=== PATIENT | male | born 1940 | race Caucasian/White ===

== ENCOUNTER → 2017-02-01 | Day surgery (SDC) | payer MEDICARE, OTHER ==
[~2017-02-01] MED LIST: LACTATED RINGER'S 1000 ML INJ 1,000 ML ONE; PROPOFOL 200 MG/20 ML AMP IV ONE
--- NOTE | 2017-02-01 13:30 | GIPROC ---
[facility] [address] [facility], [id number] EGD PROCEDURE REPORT EXAM DATE: 02/01/2017 PATIENT NAME: Dami Luna MR #: [id number] BIRTHDATE: 1940 ATTENDING: Filemon Razo MD ORDER #: [id number] COMPRESSOR OPERATOR: Erin Ventura RN STATUS: outpatient INDICATIONS: The patient is a 76 yr old male here for an EGD due to h/o cirrhosis H/O esophageal varices PROCEDURE PERFORMED: EGD w/ biopsy MEDICATIONS: None and Per Anesthesia. TOPICAL ANESTHETIC: none CONSENT: The patient understands the risks and benefits of the procedure and understands that these risks include, but are not limited to: sedation, allergic reaction, infection, perforation and/or bleeding. Alternative means of evaluation and treatment include, among others: physical exam, x-rays, and/or surgical intervention. The patient elects to proceed with this endoscopic procedure. medical equipment was checked for proper function. Hand hygiene and appropriate measures for infection prevention was taken. After the risks, benefits and alternatives of the procedure were thoroughly explained, Informed consent was verified, confirmed and timeout was successfully executed by the treatment team. The patient was anesthetized with topical anesthesia and the EC-[id number] ([id number]) endoscope was introduced through the mouth and advanced to the second portion of the duodenum. Retroflexed views revealed no abnormalities and Retroflexed views revealed a hiatal hernia The gastroscope was then slowly withdrawn and removed. Geade 1 esophageal varices in distal esophagus. Gastropathy and gastritis Bx from body of stomach. The endoscopy was otherwise normal. ADVERSE EVENTS: There were no complications. IMPRESSIONS: 1. Geade 1 esophageal varices in distal esophagus 2. Gastropathy and gastritis Bx from body of stomach 3. Normal endoscopy otherwise 4. Retroflexed views revealed no abnormalities 5. Retroflexed views revealed a hiatal hernia RECOMMENDATIONS: 1. Await biopsy results. Biopsy results will not be ready for 7-10 days. If you don't hear from us in two weeks, call our office for biopsy results. 2. Anti-reflux regimen 3. Continue PPI 4. Avoid NSAIDS 5. No ETOH RTC in 2 wks PATIENT CONDITION: stable DISPOSITION: Home REPEAT EXAM: Return 2 years EGD Filemon Razo MD eSigned: Filemon Razo MD 02/01/2017 1:30 PM cc: PATIENT NAME: Dami Luna MR#: [id number]
== END | disposition home or self-care (01) ==
LOC: ESDC 10:54
PROVIDERS: ATTEND Hospitalist
DX: I85.00 Esophageal varices without bleeding (principal); K74.60 Unspecified cirrhosis of liver; K29.70 Gastritis, unspecified, without bleeding; K31.9 Disease of stomach and duodenum, unspecified; K44.9 Diaphragmatic hernia without obstruction or gangrene
CPT/HCPCS: 00740; 43239; 88305; J7120; 88312